=== PATIENT | male | born 2000 | race Caucasian/White ===

== ENCOUNTER 2022-11-09 19:04 | Emergency (ER) | payer SELFPAY ==
[2022-11-09 19:21] VITALS: BP 146/69; PULSE 67; RESP 20; TEMP 99; BMI 25.8
[2022-11-09] MEDS ORDERED: AMOX TR/POT CLAV 875MG/125MG TABLETS (FP) PO ONE (19:58)
[2022-11-09] MEDS ORDERED: AMOX TR/POT CLAV 875MG/125MG TABLETS (FP) ONE (19:59)
== END 2022-11-09 21:02 | disposition home or self-care (01) ==
LOC: JERFT 19:04 → JER 19:04 → JERFT 21:02
DX: H60.312 Diffuse otitis externa, left ear (principal)
CPT/HCPCS: 99283-25

== ENCOUNTER 2022-12-29 19:46 | Emergency (ER) | payer OTHER ==
[2022-12-29 19:52] VITALS: BP 157/90; PULSE 89; RESP 16; TEMP 98.1; BMI 25.2
== END 2022-12-29 23:19 | disposition home or self-care (01) ==
LOC: JER 19:46 → JERFT 19:46 → JER 23:19
DX: L73.1 Pseudofolliculitis barbae (principal); N45.4 Abscess of epididymis or testis; N50.812 Left testicular pain
CPT/HCPCS: 76870-TC; 99284-25

== ENCOUNTER 2025-06-19 19:20 | Emergency (ER) | payer OTHER ==
[2025-06-19 19:28] VITALS: BP 138/82; PULSE 80; RESP 17; TEMP 98.2; BMI 27.2
[2025-06-19 20:38] LABS: URINE APPEARANCE CLEAR; URINE BILIRUBIN NEGATIVE (NEGATIVE); URINE COLOR YELLOW; URINE GLUCOSE (UA) NEGATIVE (NEGATIVE); URINE KETONE NEGATIVE (NEGATIVE); URINE LEUK ESTERASE NEGATIVE (NEGATIVE); URINE NITRITE NEGATIVE (NEGATIVE); URINE PROTEIN NEGATIVE (NEGATIVE); URINE UROBILINOGEN 0.2 mg/dL (0.2-1.0)
== END 2025-06-19 21:21 | disposition home or self-care (01) ==
LOC: JERFT 19:20
DX: R30.0 Dysuria (principal); L73.9 Follicular disorder, unspecified
CPT/HCPCS: 36415; 81003; 87086; 87491; 87591; 96372; 99284-25